=== PATIENT | female | born 1940 | race African-American/Black ===

== ENCOUNTER 2022-06-04 15:21 | Inpatient (IN) ==
[2022-06-04] MEDS ORDERED: ALBUTEROL 2.5 MG/3 ML NEB RESP TX PRN (17:12)
[2022-06-04] MEDS ORDERED: ONDANSETRON 4 MG/2 ML VIAL IV PRN (17:12)
[2022-06-04] MEDS ORDERED: ACETAMINOPHEN 325 MG TABLET PO PRN (17:12)
[2022-06-04] MEDS ORDERED: hydrALAZINE 20 MG/1 ML VIAL IV PRN (17:12)
[2022-06-04] MEDS ORDERED: SODIUM CHLORIDE 0.9% 1,000 ML IV ONE (17:22)
[2022-06-04] MEDS ORDERED: LEVALBUTEROL 1.25 MG/3 ML NEB RESP TX PRN ×2 (17:35→17:38)
[2022-06-04] MEDS ORDERED: LEVALBUTEROL 1.25 MG/3 ML NEB RESP TX ONE (17:35)
[2022-06-04] MEDS ORDERED: PANTOPRAZOLE 40 MG VIAL IV SCH (18:00)
[2022-06-04 18:24] LABS: Basophils % 0.2 % (0.0-0.8); Hematocrit 33.4 VOL% (35.7-47.0); Immature Granulocytes % 0.9 %; Immature Granulocytes Absolute 0.16 #; Lymphocytes % 5.7 % (21.3-54.2); Mean Corpuscular HGB Conc 32.9 GM/DL (32-36); Mean Corpuscular Volume 92.8 FL (87-102); Mean Platelet Volume 9.3 FL (9.6-12.0); Monocytes # 1.3 10*3/uL (0.11-0.8); Monocytes % 7.3 % (1.7-12.7); Neutrophils % 85.9 % (38.7-73.9); Platelet Count 460 T/CUMM (130-400); Red Cell Distribution Width 15.4 % (9.3-17.3); White Blood Count 18.2 T/CUMM (4-12)
[2022-06-04 18:29] LABS: Albumin 2.2 G/DL (3.4-5.0); Bilirubin,Total 0.5 MG/DL (0.20-1.00); Calcium 9.6 MG/DL (8.5-10.1); Osmolality,Calculated 268.4 MOS/KG (273-304); Potassium 4.3 MMOL/L (3.5-5.1); Total Protein 8.1 G/DL (6.4-8.2)
[2022-06-04] MEDS: SODIUM CHLORIDE 0.9% 1,000 ML IV SCH (18:30)
[2022-06-04] MEDS ORDERED: GLUCAGON 1 MG VIAL IM PRN (18:32)
[2022-06-04] MEDS ORDERED: DEXTROSE 10% 250 ML BAG IV PRN (18:37)
[2022-06-04] MEDS: PANTOPRAZOLE 40 MG VIAL IV SCH (18:45)
[2022-06-04] MEDS: INSULIN LISPRO 100 UNIT/ML SUBCUT SCH (20:17)
[2022-06-04] MEDS: LATANOPROST 0.005% OPH SOLN 2.5 ML BOTTLE BOTH EYES SCH (20:32)
[2022-06-04] MEDS: DORZOLAMIDE 2% OPH SOLN 10 ML BOTTLE BOTH EYES SCH (20:32)
[2022-06-04] MEDS: ENOXAPARIN 80 MG/0.8 ML SYRINGE SUBCUT SCH (20:33)
[2022-06-04] MEDS: IMMUNE GLOBULIN 10% 20 GM, IMMUNE GLOBULIN 10% 10 GM in PREMIX 1 EACH IV SCH (20:34)
[2022-06-04] MEDS ORDERED: NOREPINEPHRINE 8 MG in SODIUM CHLORIDE 0.9% 242 ML IV PRN (23:21)
[2022-06-04] MEDS ORDERED: NOREPINEPHRINE 4 MG/4 ML VIAL IV ONE (23:22)
[2022-06-05] LABS: Arterial Base Excess iSTAT 5 MMOL/L (-2.5-2.5); Arterial Bicarbonate iSTAT 29.5 MMOL/L (20-26); Arterial O2 Saturation iSTAT 99 % (95-100); Arterial PCO2 iSTAT 43 MM HG (35-48); Arterial PO2 iSTAT 147 MM HG (80-95); Arterial Total CO2 iSTAT 31 MMO/L (23-27); Arterial pH iSTAT 7.446 (7.35-7.45)
[2022-06-05] MEDS: METOPROLOL TARTRATE 5 MG/5 ML VIAL IV SCH ×4 (00:20→18:47)
[2022-06-05] MEDS: SODIUM CHLORIDE 0.9% 1,000 ML IV SCH ×2 (03:30→16:15)
[2022-06-05] MEDS: INSULIN LISPRO 100 UNIT/ML SUBCUT SCH ×6 (04:00→20:16)
[2022-06-05] MEDS: PANTOPRAZOLE 40 MG VIAL IV SCH ×2 (05:59→18:48)
[2022-06-05 08:55] LABS: Alanine Aminotransferase 135 U/L (13-56); Albumin 1.7 G/DL (3.4-5.0); Alkaline Phosphatase 110 U/L (45-117); Aspartate Amino Transferase 104 U/L (0-37); Bilirubin,Total < 0.39 MG/DL (0.20-1.00); Blood Urea Nitrogen 16 MG/DL (7-18); Calcium 9.4 MG/DL (8.5-10.1); Carbon Dioxide 27 MMOL/L (21-32); Chloride 102 MMOL/L (98-107); Glucose 90 MG/DL (74-106); Osmolality,Calculated 268.2 MOS/KG (273-304); Potassium 3.7 MMOL/L (3.5-5.1); Sodium 134 MMOL/L (136-145); Total Protein 7.9 G/DL (6.4-8.2)
[2022-06-05 09:31] LABS: Basophils % 0.1 % (0.0-0.8); Eosinophils % 0.2 % (0.00-10.9); Hematocrit 27.1 VOL% (35.7-47.0); Immature Granulocytes % 0.5 %; Immature Granulocytes Absolute 0.06 #; Lymphocytes # 1.5 10*3/uL (1.4-4.0); Lymphocytes % 13.8 % (21.3-54.2); Mean Corpuscular HGB Conc 31.4 GM/DL (32-36); Mean Corpuscular Volume 96.4 FL (87-102); Mean Platelet Volume 9.2 FL (9.6-12.0); Monocytes # 1.8 10*3/uL (0.11-0.8); Monocytes % 16.3 % (1.7-12.7); Neutrophils % 69.1 % (38.7-73.9); Platelet Count 408 T/CUMM (130-400); Red Cell Distribution Width 15.6 % (9.3-17.3)
[2022-06-05 09:33] LABS: Hemoglobin 8.5 GM/DL (12.0-16.0); Red Blood Count 2.81 MC/CUMM (3.8-5.5)
[2022-06-05 09:51] LABS: Eosinophils 2 % (0-10); Lymphocytes 9 % (20-55); Macrocytosis Slight; Total Cells Counted 100
[2022-06-05] MEDS: DORZOLAMIDE 2% OPH SOLN 10 ML BOTTLE BOTH EYES SCH ×2 (10:10→20:46)
[2022-06-05] MEDS: amLODIPine 10 MG TABLET PO SCH (10:10)
[2022-06-05] MEDS: ENOXAPARIN 80 MG/0.8 ML SYRINGE SUBCUT SCH ×2 (10:10→20:46)
[2022-06-05] MEDS: POLYETHYLENE GLYCOL POWDER 17 GM PACK PO SCH (10:10)
[2022-06-05] MEDS: METOCLOPRAMIDE 10 MG/2 ML VIAL IV SCH ×2 (12:59→18:48)
[2022-06-05] MEDS: MENTHOL/ZINC OXIDE OINT 71 GM JAR TOP SCH ×2 (13:00→20:45)
[2022-06-05 13:51] LABS: Bilirubin,Urine Negative (Negative); Blood, Urine Negative (Negative); Glucose,Urine (UA) Negative (Negative); Hyaline Casts,Urine 1 /LPF (0-3); Ketones,Urine Negative (Negative); Mucus,Urine Occasional /LPF (Occasional); Nitrite,Urine Negative (Negative); Protein,Urine 30 mg/dL (Negative); RBC,Urine 14 /HPF (0-4); Squamous Epithelial Cell,Urine Occasional /HPF (0-10); Urine Appearance Clear (Clear); Urine Color Yellow (Yellow); Urine Specific Gravity 1.025 (1.001-1.035); Urine Urobilinogen 0.2 eU/dL (<2.0); Urine pH 5.5 (4.5-8.0)
[2022-06-05 14:15] LABS: Basophils % 0.2 % (0.0-0.8); Eosinophils % 0.1 % (0.00-10.9); Hematocrit 28.6 VOL% (35.7-47.0); Hemoglobin 9.1 GM/DL (12.0-16.0); Immature Granulocytes % 0.7 %; Immature Granulocytes Absolute 0.07 #; Lymphocytes # 1.4 10*3/uL (1.4-4.0); Lymphocytes % 13.4 % (21.3-54.2); Mean Corpuscular HGB Conc 31.8 GM/DL (32-36); Mean Platelet Volume 9.1 FL (9.6-12.0); Monocytes # 1.3 10*3/uL (0.11-0.8); Monocytes % 12.9 % (1.7-12.7); Neutrophils % 72.7 % (38.7-73.9); Platelet Count 397 T/CUMM (130-400); Red Blood Count 3.01 MC/CUMM (3.8-5.5); Red Cell Distribution Width 15.7 % (9.3-17.3); White Blood Count 10.4 T/CUMM (4-12)
[2022-06-05] MEDS: IMMUNE GLOBULIN 10% 20 GM, IMMUNE GLOBULIN 10% 10 GM in PREMIX 1 EACH IV SCH (20:45)
[2022-06-05] MEDS: LATANOPROST 0.005% OPH SOLN 2.5 ML BOTTLE BOTH EYES SCH (20:46)
[2022-06-06] MEDS: METOPROLOL TARTRATE 5 MG/5 ML VIAL IV SCH ×4 (00:12→17:57)
[2022-06-06] MEDS: METOCLOPRAMIDE 10 MG/2 ML VIAL IV SCH ×4 (00:13→18:10)
[2022-06-06] MEDS: SODIUM CHLORIDE 0.9% 1,000 ML IV SCH ×2 (04:05→14:53)
[2022-06-06] MEDS ORDERED: MORPHINE 2 MG/1 ML SYRINGE ONE (04:46)
[2022-06-06 04:47] LABS: Basophils % 0.2 % (0.0-0.8); Eosinophils % 0.1 % (0.00-10.9); Hematocrit 31.5 VOL% (35.7-47.0); Immature Granulocytes % 1.3 %; Immature Granulocytes Absolute 0.19 #; Lymphocytes # 2.9 10*3/uL (1.4-4.0); Lymphocytes % 20.4 % (21.3-54.2); Mean Corpuscular HGB Conc 31.7 GM/DL (32-36); Mean Corpuscular Volume 96.9 FL (87-102); Mean Platelet Volume 9.1 FL (9.6-12.0); Monocytes # 2.4 10*3/uL (0.11-0.8); Monocytes % 16.6 % (1.7-12.7); Neutrophils % 61.4 % (38.7-73.9); Platelet Count 518 T/CUMM (130-400); Red Blood Count 3.25 MC/CUMM (3.8-5.5); Red Cell Distribution Width 15.8 % (9.3-17.3); White Blood Count 14.2 T/CUMM (4-12)
[2022-06-06] MEDS ORDERED: VECURONIUM 10 MG VIAL IV ONE ×2 (04:53→05:07)
[2022-06-06] MEDS ORDERED: ETOMIDATE 20 MG/10 ML VIAL IV ONE ×2 (04:53→05:07)
[2022-06-06 04:57] LABS: Phosphorous 3.4 MG/DL (2.5-4.9)
[2022-06-06 05:00] LABS: Alanine Aminotransferase 12 U/L (13-56); Albumin 1.7 G/DL (3.4-5.0); Alkaline Phosphatase 52 U/L (45-117); Aspartate Amino Transferase 19 U/L (0-37); Bilirubin,Total < 0.39 MG/DL (0.20-1.00); Blood Urea Nitrogen 53 MG/DL (7-18); Calcium 7.5 MG/DL (8.5-10.1); Carbon Dioxide 26 MMOL/L (21-32); Chloride 109 MMOL/L (98-107); Glucose 215 MG/DL (74-106); Osmolality,Calculated 302.1 MOS/KG (273-304); Potassium 3.3 MMOL/L (3.5-5.1); Sodium 142 MMOL/L (136-145); Total Protein 3.8 G/DL (6.4-8.2)
[2022-06-06] MEDS ORDERED: propofoL 200 MG/20 ML VIAL IV ONE (05:07)
[2022-06-06 05:12] LABS: Lymphocytes 13 % (20-55); Nucleated Red Blood Cells 1 (0-5); Platelet Estimate Adequate; Total Cells Counted 100
[2022-06-06] MEDS ORDERED: MORPHINE 2 MG/1 ML SYRINGE IV ONE (05:50)
[2022-06-06 06:24] LABS: Arterial Base Excess iSTAT 4 MMOL/L (-2.5-2.5); Arterial Bicarbonate iSTAT 28.6 MMOL/L (20-26); Arterial O2 Saturation iSTAT 100 % (95-100); Arterial PCO2 iSTAT 42 MM HG (35-48); Arterial PO2 iSTAT 570 MM HG (80-95); Arterial Total CO2 iSTAT 30 MMO/L (23-27); Arterial pH iSTAT 7.446 (7.35-7.45)
[2022-06-06] MEDS: PANTOPRAZOLE 40 MG VIAL IV SCH ×2 (06:43→18:09)
[2022-06-06] MEDS: INSULIN LISPRO 100 UNIT/ML SUBCUT SCH ×4 (06:43→17:56)
[2022-06-06 07:39] LABS: Albumin 1.4 G/DL (3.4-5.0); Bilirubin,Total 0.7 MG/DL (0.20-1.00); Calcium 8.4 MG/DL (8.5-10.1); Osmolality,Calculated 270.2 MOS/KG (273-304); Potassium 4.7 MMOL/L (3.5-5.1); Total Protein 8.6 G/DL (6.4-8.2)
[2022-06-06] MEDS: ENOXAPARIN 80 MG/0.8 ML SYRINGE SUBCUT SCH ×2 (09:31→20:37)
[2022-06-06] MEDS: MENTHOL/ZINC OXIDE OINT 71 GM JAR TOP SCH ×2 (09:31→20:37)
[2022-06-06] MEDS: POLYETHYLENE GLYCOL POWDER 17 GM PACK PO SCH (09:31)
[2022-06-06] MEDS: DORZOLAMIDE 2% OPH SOLN 10 ML BOTTLE BOTH EYES SCH ×2 (09:32→20:38)
[2022-06-06] MEDS: MIDAZOLAM 100 MG in SODIUM CHLORIDE 0.9% 80 ML IV PRN (09:32)
[2022-06-06] MEDS: amLODIPine 10 MG TABLET PO SCH (09:33)
[2022-06-06] MEDS ORDERED: MAGNESIUM SULF RIDER 2 GM/50 ML PREMIX IV PRN (13:49)
[2022-06-06] MEDS ORDERED: MAGNESIUM SULF RIDER 4 GM/100 ML PREMIX IV PRN (13:49)
[2022-06-06] MEDS: PIPERACILLIN/TAZOBACTAM 3,375 MG in SODIUM CHLORIDE 0.9% 100 ML IV SCH ×2 (14:52→21:03)
[2022-06-06] MEDS ORDERED: SODIUM CHLORIDE 0.9% 1,000 ML IV ONE (15:17)
[2022-06-06] MEDS ORDERED: METOPROLOL TARTRATE 5 MG/5 ML VIAL IV PRN (18:13)
[2022-06-06] MEDS: busPIRone 5 MG TABLET PO SCH (20:37)
[2022-06-06] MEDS: LATANOPROST 0.005% OPH SOLN 2.5 ML BOTTLE BOTH EYES SCH (20:38)
[2022-06-06] MEDS: IMMUNE GLOBULIN 10% 20 GM, IMMUNE GLOBULIN 10% 10 GM in PREMIX 1 EACH IV SCH (20:38)
[2022-06-07] MEDS: INSULIN LISPRO 100 UNIT/ML SUBCUT SCH ×4 (00:16→18:33)
[2022-06-07] MEDS: METOCLOPRAMIDE 10 MG/2 ML VIAL IV SCH ×4 (00:16→19:06)
[2022-06-07] MEDS: MIDAZOLAM 100 MG in SODIUM CHLORIDE 0.9% 80 ML IV PRN (02:50)
[2022-06-07 03:14] LABS: Arterial Base Excess iSTAT 2 MMOL/L (-2.5-2.5); Arterial Bicarbonate iSTAT 25.3 MMOL/L (20-26); Arterial O2 Saturation iSTAT 100 % (95-100); Arterial PCO2 iSTAT 34 MM HG (35-48); Arterial PO2 iSTAT 177 MM HG (80-95); Arterial Total CO2 iSTAT 26 MMO/L (23-27); Arterial pH iSTAT 7.483 (7.35-7.45)
[2022-06-07] MEDS: SODIUM CHLORIDE 0.9% 1,000 ML IV SCH (04:10)
[2022-06-07 04:51] LABS: Albumin 1.2 G/DL (3.4-5.0); Bilirubin,Total 0.5 MG/DL (0.20-1.00); Osmolality,Calculated 277.7 MOS/KG (273-304); Potassium 4.1 MMOL/L (3.5-5.1); Total Protein 8.3 G/DL (6.4-8.2)
[2022-06-07 04:52] LABS: Basophils % 0.2 % (0.0-0.8); Eosinophils # 0.1 10*3/uL (0.0-0.87); Eosinophils % 0.5 % (0.00-10.9); Hematocrit 23.5 VOL% (35.7-47.0); Hemoglobin 7.5 GM/DL (12.0-16.0); Immature Granulocytes % 0.8 %; Immature Granulocytes Absolute 0.09 #; Lymphocytes # 1.6 10*3/uL (1.4-4.0); Lymphocytes % 14.4 % (21.3-54.2); Mean Corpuscular HGB Conc 31.9 GM/DL (32-36); Mean Corpuscular Volume 97.1 FL (87-102); Mean Platelet Volume 9.6 FL (9.6-12.0); Monocytes # 1.6 10*3/uL (0.11-0.8); Monocytes % 13.8 % (1.7-12.7); Neutrophils % 70.3 % (38.7-73.9); Platelet Count 412 T/CUMM (130-400); Red Blood Count 2.42 MC/CUMM (3.8-5.5); White Blood Count 11.3 T/CUMM (4-12)
[2022-06-07] MEDS: PIPERACILLIN/TAZOBACTAM 3,375 MG in SODIUM CHLORIDE 0.9% 100 ML IV SCH ×3 (05:10→22:30)
[2022-06-07] MEDS: PANTOPRAZOLE 40 MG VIAL IV SCH ×2 (05:10→19:06)
[2022-06-07] MEDS: amLODIPine 10 MG TABLET PO SCH (08:36)
[2022-06-07] MEDS: POLYETHYLENE GLYCOL POWDER 17 GM PACK PO SCH (08:36)
[2022-06-07] MEDS: busPIRone 5 MG TABLET PO SCH ×2 (08:36→21:56)
[2022-06-07] MEDS: ENOXAPARIN 80 MG/0.8 ML SYRINGE SUBCUT SCH ×2 (08:36→21:56)
[2022-06-07 08:37] LABS: Basophils % 0.2 % (0.0-0.8); Eosinophils # 0.1 10*3/uL (0.0-0.87); Eosinophils % 0.5 % (0.00-10.9); Hematocrit 24.4 VOL% (35.7-47.0); Hemoglobin 7.7 GM/DL (12.0-16.0); Immature Granulocytes % 0.9 %; Immature Granulocytes Absolute 0.09 #; Lymphocytes # 1.1 10*3/uL (1.4-4.0); Lymphocytes % 10.7 % (21.3-54.2); Mean Corpuscular HGB Conc 31.6 GM/DL (32-36); Mean Corpuscular Volume 98.4 FL (87-102); Mean Platelet Volume 9.3 FL (9.6-12.0); Monocytes # 1.2 10*3/uL (0.11-0.8); Monocytes % 12.1 % (1.7-12.7); Neutrophils % 75.6 % (38.7-73.9); Platelet Count 434 T/CUMM (130-400); Red Blood Count 2.48 MC/CUMM (3.8-5.5); Red Cell Distribution Width 16.2 % (9.3-17.3); White Blood Count 10.2 T/CUMM (4-12)
[2022-06-07] MEDS: DORZOLAMIDE 2% OPH SOLN 10 ML BOTTLE BOTH EYES SCH ×2 (08:37→21:57)
[2022-06-07] MEDS: MENTHOL/ZINC OXIDE OINT 71 GM JAR TOP SCH ×2 (08:37→21:56)
[2022-06-07] MEDS ORDERED: SODIUM CHLORIDE 0.9% 1,000 ML IV PRN (09:16)
[2022-06-07 17:16] LABS: Hematocrit 32.4 VOL% (35.7-47.0); Hemoglobin 10.3 GM/DL (12.0-16.0)
[2022-06-07 19:16] VITALS: BP 155/84
[2022-06-07] MEDS: IMMUNE GLOBULIN 10% 20 GM, IMMUNE GLOBULIN 10% 10 GM in PREMIX 1 EACH IV SCH (19:54)
[2022-06-07] MEDS: LATANOPROST 0.005% OPH SOLN 2.5 ML BOTTLE BOTH EYES SCH (21:57)
== END 2022-06-07 23:03 | disposition hospice, home (50) | DRG 94 ==
LOC: N.CC 16:59
PROVIDERS: ADMIT Family Medicine; ATTEND Family Medicine